=== PATIENT | female | born 1930 | race Caucasian/White ===

== ENCOUNTER 2016-02-29 17:09 | Inpatient (IN) | payer MEDICARE, OTHER ==
[2016-02-29 17:54] LABS: ABSOLUTE EOSINOPHILS # (AUTO) 0.2 10^3/uL (0.0-0.6); ABSOLUTE LYMPHOCYTES (AUTO) 0.5 10^3/uL (0.5-4.7); ABSOLUTE MONOCYTES (AUTO) 1.2 10^3/uL (0.1-1.4); ABSOLUTE NEUT (AUTO) 7.6 10^3/uL (1.7-8.2); BASOPHILS % (AUTO) 0.4 % (0-2); EOSINOPHILS % (AUTO) 2.3 % (0-6); HEMATOCRIT 42.2 % (36.0-47.0); HEMOGLOBIN 13.3 g/dL (12.0-15.5); HGB HCT DIFFERENCE -2.3; LYMPHOCYTES % (AUTO) 5.6 % (13-45); MEAN CORPUSCULAR HGB CONC 31.5 g/dL (32.0-36.0); MEAN CORPUSCULAR VOLUME 89 fl (80-97); MONOCYTES % (AUTO) 12.8 % (3-13); RED BLOOD COUNT 4.76 10^6/uL (3.72-5.28); RED CELL DISTRIBUTION WIDTH 14.1 % (11.5-14.0); SEGMENTED NEUTROPHILS % (AUTO) 78.9 % (42-78); WHITE BLOOD COUNT 9.7 10^3/uL (4.0-10.5)
[2016-02-29 18:11] LABS: ALANINE AMINOTRANSFERASE 18 U/L (9-52); ALBUMIN 3.7 g/dL (3.5-5.0); ALKALINE PHOSPHATASE 124 U/L (38-126); ANION GAP 13 (5-19); ASPARTATE AMINO TRANSFERASE 21 U/L (14-36); BILIRUBIN,TOTAL 0.6 mg/dL (0.2-1.3); BLOOD UREA NITROGEN 24 mg/dL (7-20); CALCIUM 8.8 mg/dL (8.4-10.2); CARBON DIOXIDE 35 mmol/L (22-30); CHLORIDE 97 mmol/L (98-107); CREATININE RESULT 0.71 mg/dL (0.52-1.25); GLUCOSE 120 mg/dL (75-110); POTASSIUM 3.9 mmol/L (3.6-5.0); SODIUM 144.6 mmol/L (137-145); TOTAL PROTEIN 7.4 g/dL (6.3-8.2)
--- NOTE | 2016-02-29 19:05 | ER Document Report ---
ED GI/ - General Chief Complaint: Nausea/Vomiting Stated Complaint: VOMITING Time seen by provider: 19:04 Mode of Arrival: Stretcher Information source: Transfer Record TRAVEL OUTSIDE OF THE [place] IN LAST 30 DAYS: No - HPI Patient complains to provider of: Vomiting Onset: This morning Timing/Duration: Sudden Quality of pain: No pain Associated symptoms: Nausea, Vomiting Exacerbated by: Food Relieved by: Denies Notes: 02/29/16 19:05 Patient is an 86-year-old female [facility] for complaints of nausea and vomiting that started this morning, patient has a history of Alzheimer's dementia, and is unable to provide any specific details regarding her condition - Related Data Allergies/Adverse Reactions: Penicillins Allergy (Verified 02/29/16 17:28) Sulfa (Sulfonamide Antibiotics) Allergy (Verified 02/29/16 17:28) Past Medical History - General Information source: Outside Facility Records Cannot obtain history due to: Dementia - Social History Smoking Status: Unknown if Ever Smoked Family History: Reviewed & Not Pertinent Patient has suicidal ideation: No Patient has homicidal ideation: No - Past Medical History Cardiac Medical History: Reports: Hx Hypertension Renal/ Medical History: Denies: Hx Peritoneal Dialysis Surgical Hx: Negative Review of Systems - Review of Systems -: Yes ROS unobtainable due to patient's medical condition Gastrointestinal: Nausea, Vomiting Physical Exam - Vital signs Vitals: Temp Pulse Resp BP Pulse Ox 99.4 F 105 H 20 157/90 H 88 L 02/29/16 17:15 02/29/16 17:15 02/29/16 17:15 02/29/16 17:15 02/29/16 17:15 Interpretation: Tachycardic - General General appearance: Appears well, Alert In distress: None - HEENT Head: Normocephalic, Atraumatic Eyes: Normal Conjunctiva: Normal Extraocular movements intact: Yes Eyelashes: Normal Pupils: PERRL Mucous membranes: Dry - Respiratory Respiratory status: No respiratory distress Chest status: Nontender Breath sounds: Normal Chest palpation: Normal - Cardiovascular Rhythm: Regular, Tachycardia - Abdominal Inspection: Normal Distension: No distension Bowel sounds: Normal Tenderness: Nontender Organomegaly: No organomegaly - Back Back: Normal, Nontender - Extremities General upper extremity: Normal inspection, Nontender, Normal color, Normal ROM , Normal temperature General lower extremity: Normal inspection, Nontender, Normal color, Normal ROM , Normal temperature, Normal weight bearing. No: Avinash's sign - Neurological Cognition: Confused [place] Coma Scale Eye Opening: Spontaneous [place] Coma Scale Verbal: Confused [place] Coma Scale Motor: Obeys Commands Tony Coma Scale Total: 14 - Psychological Associated symptoms: Normal affect, Normal mood - Skin Skin Temperature: Warm Skin Moisture: Dry Skin Color: Normal Course - Re-evaluation Re-evalutation: 03/01/16 01:57 Patient has been persistently tachycardic, she also becomes quite hypoxic once oxygen is removed, at times patient's speech appears to be coherent, at other times it is not, she is unable to answer any questions appropriately, nursing staff called the penitentiary to get some background information on patient, they state that her speech is normally coherent and she is not oxygen dependent , therefore a CT head has been ordered to rule out CVA, and a CTA of the chest to rule out pulmonary emboli 03/01/16 04:35 CT scan shows large mass in the lungs and mediastinum, patient's penitentiary history does not report any history of previous cancer, she continues to become hypoxic when oxygen is removed, penitentiary reports no oxygen usage regularly, patient has no family members present and it is difficult to obtain information from her, therefore patient was discussed with the hospitalist who agrees to admit for further evaluation and treatment, patient is a DO NOT RESUSCITATE portable DNA with her - Vital Signs Vital signs: Temp Pulse Resp BP Pulse Ox 99.4 F 105 H 19 166/69 H 95 02/29/16 17:15 02/29/16 17:15 03/01/16 04:00 03/01/16 03:38 03/01/16 04:00 - Laboratory Result Diagrams: 02/29/16 17:35 02/29/16 17:35 Laboratory results interpreted by me: 02/29/16 02/29/16 02/29/16 17:35 17:35 20:22 MCHC 31.5 L RDW 14.1 H Seg Neutrophils % 78.9 H Lymphocytes % 5.6 L Chloride 97 L Carbon Dioxide 35 H BUN 24 H Glucose 120 H Urine Blood SMALL H Urine Nitrite POSITIVE H Urine Ascorbic Acid 40 H - Diagnostic Test Radiology reviewed: Image reviewed, Reports reviewed - EKG Interpretation by Me EKG shows normal: Sinus rhythm Rate: Tachycardia - Transfer of Care Care transferred to following provider: Dr. Matute Critical Care Note - Critical Care Note Total time excluding time spent on procedures (mins): 60 Comments: Patient persistently tachycardic and hypoxic when oxygen removed, CT scan shows large lung and mediastinal mass, requiring admission for further evaluation and treatment Discharge - Discharge Clinical Impression: Lung mass, Hypoxia Nausea and vomiting Qualifiers: Vomiting type: unspecified Vomiting Intractability: non-intractable Qualified Code(s): R11.2 - Nausea with vomiting, unspecified Condition: Serious Disposition: ADMITTED INPATIENT Admitting Provider: Hospitalist Unit Admitted: Telemetry
[2016-02-29] MEDS: NORMAL SALINE 1000 ML 1,000 ML IV PRN (20:10)
[2016-02-29 20:57] LABS: APPEARANCE,URINE CLEAR; BILIRUBIN,URINE NEGATIVE (NEGATIVE); GLUCOSE, URINE NEGATIVE (NEGATIVE); KETONES,URINE NEGATIVE (NEGATIVE); LEUKOCYTE ESTERASE,URINE NEGATIVE (NEGATIVE); NITRITE,URINE POSITIVE (NEGATIVE); PROTEIN,URINE NEGATIVE (NEGATIVE); URINE SPECIFIC GRAVITY 1.014; UROBILINOGEN,URINE NEGATIVE mg/dL (<2.0)
[2016-02-29] MEDS ORDERED: NORMAL SALINE 1000 ML 1,000 ML IV PRN (21:26)
[2016-02-29] MEDS ORDERED: DEXTROSE IV ONE (22:40)
[2016-02-29] MEDS ORDERED: CIPROFLOXACIN IV ONE (22:40)
[2016-02-29] MEDS ORDERED: IPRATROPIUM/ALBUTEROL 0.5-2.5 MG/3 ML AMPUL NEB ONE (23:08)
[2016-02-29] MEDS ORDERED: FUROSEMIDE INJ/PF 40 MG/4 ML SDV IV ONE (23:09)
[2016-03-01] MEDS: NORMAL SALINE 1000 ML 1,000 ML IV PRN (00:34)
[2016-03-01] MEDS ORDERED: LEVALBUTEROL HCL NEB 1.25 MG/3 ML AMPUL NEB ONE (01:24)
[2016-03-01] MEDS ORDERED: ACETAMINOPHEN 325 MG TABLET PO ONE (02:41)
[2016-03-01] MEDS ORDERED: ONDANSETRON HCL INJ/PF 4 MG/2 ML SDV IV PRN (04:27)
[2016-03-01] MEDS ORDERED: ACETAMINOPHEN 325 MG TABLET PO PRN (04:27)
[2016-03-01] MEDS ORDERED: IPRATROPIUM/ALBUTEROL 0.5-2.5 MG/3 ML AMPUL NEB PRN (04:27)
[2016-03-01] MEDS ORDERED: NORMAL SALINE 1000 ML 1,000 ML IV SCH (04:30)
[2016-03-01] MEDS ORDERED: HYDROCODONE/ACETAMINOPHEN 5-325 MG TABLET PO PRN (04:30)
--- NOTE | 2016-03-01 05:19 | PDOC H&P ---
History of Present Illness Admission Date/PCP: 03/01/16 04:29 Patient complains of: Nausea vomiting History of Present Illness: OLGA DILLON is a 86 year old female who is a long-term [facility] resident and has a history of hypertension and dementia he was noted by [facility] staff to have nausea with vomiting and brought to the emergency room for evaluation without subsequent symptoms however has had tachycardia and hypoxia and referred to the emergency room for evaluation. Unfortunately the patient is a for a poor historian oriented 1 and subsequent history is obtained by the medical record. In her workup by emergency room physician she is noted to have a chest x-ray notable for a wide mediastinum and a CT showing a 4.5 cm aortic aneurysm and presumed new finding of large lung mass with metastasis. Past Medical History Cardiac Medical History: Reports: Hypertension Social History Information Source: [facility] Records Lives with: [facility] Smoking Status: Unknown if Ever Smoked Hx Recreational Drug Use: No Drugs: None Hx Prescription Drug Abuse: No - Advance Directive Resuscitation Status: Do Not Resuscitate Family History Family History: None Parental Family History Reviewed: Yes Children Family History Reviewed: Yes Sibling(s) Family History Reviewed.: Yes Medication/Allergy Home Medications: Acetaminophen [Arthritis Pain Relief] 650 mg 03/01/16 Amlodipine Besylate DAILY 03/01/16 Brimonidine Tartrate [Brimonidine Tartrate] 03/01/16 Clonidine HCl [Clonidine HCl] QHS 03/01/16 Cod Liver Oil/Zinc Oxide [Desitin Diaper Rash 40% Paste] PRN 03/01/16 Docusate Sodium PRN 03/01/16 Ezetimibe [Zetia 10 mg Tablet] DAILY 03/01/16 Furosemide [Lasix 20 mg Tablet] DAILY 03/01/16 Furosemide [Lasix 40 mg Tablet] DAILY 03/01/16 Guaifenesin/D-Methorphan Hb [Robitussin-Dm Syrup 10 ml Udcup] PRN 03/01/16 Polyethylene Glycol 3350 [Gavilax] PRN 03/01/16 Potassium Chloride [Klor-Con 10] BID 03/01/16 Timolol Maleate [Timoptic 0.5% Oph Soln 5 ml] BID 03/01/16 Allergies/Adverse Reactions: Penicillins Allergy (Verified 02/29/16 17:28) Sulfa (Sulfonamide Antibiotics) Allergy (Verified 02/29/16 17:28) Review of Systems ROS unobtainable: Due to mental status Physical Exam Vital Signs: Temp Pulse Resp BP Pulse Ox 99.4 F 105 H 19 166/69 H 95 02/29/16 17:15 02/29/16 17:15 03/01/16 04:00 03/01/16 03:38 03/01/16 04:00 General appearance: PRESENT: no acute distress, obese Head exam: PRESENT: atraumatic, normocephalic Eye exam: PRESENT: conjunctiva pink, EOMI, PERRLA. ABSENT: scleral icterus Ear exam: PRESENT: normal external ear exam Mouth exam: PRESENT: moist, tongue midline Neck exam: ABSENT: carotid bruit, JVD, lymphadenopathy, thyromegaly Respiratory exam: PRESENT: crackles, prolonged expiratory phas, symmetrical, unlabored. ABSENT: rales, retraction, rhonchi Cardiovascular exam: PRESENT: +S1, +S2, systolic murmur Pulses: PRESENT: normal dorsalis pedis pul Vascular exam: PRESENT: normal capillary refill GI/Abdominal exam: PRESENT: normal bowel sounds, soft. ABSENT: distended, guarding, mass, organolmegaly, rebound, tenderness Rectal exam: PRESENT: deferred Extremities exam: PRESENT: +1 edema Neurological exam: PRESENT: oriented to person, reflexes normal, CN II-XII grossly intact. ABSENT: oriented to place, oriented to time, oriented to situation Psychiatric exam: PRESENT: appropriate affect, normal mood. ABSENT: homicidal ideation, suicidal ideation Skin exam: PRESENT: dry, intact, warm. ABSENT: cyanosis, rash Results Impressions: Chest X-Ray 02/29/16 21:18 IMPRESSION: NO SIGNIFICANT RADIOGRAPHIC FINDING IN THE CHEST. Head CT 03/01/16 01:48 IMPRESSION: No acute intracranial hemorrhage or depressed calvarial fracture. Chronic changes of atrophy and microvascular ischemia. Chest/Abdomen CTA 03/01/16 01:58 IMPRESSION: No pulmonary emboli. 4.5 cm fusiform aneurysmal dilation of the ascending thoracic aorta. Heterogeneous mass at the medial right lung apex extending into the right mediastinum and perihilar region, worrisome for malignancy. Correlation with PET/ CT and tissue sampling recommended. Right hilar, mediastinal and right supraclavicular adenopathy, probably metastatic. Pleural thickening along the right upper lung with adjacent rib destruction, also probably metastatic lesions. Heterogeneous nodule at the right adrenal gland, metastasis cannot be excluded. These can also be better evaluated on PET/CT. Small hiatal hernia. Enlarged and heterogeneous visualized thyroid gland. Thyroid ultrasound can be obtained as clinically warranted. Anterior wedging with compression deformity at T9 vertebral body, of indeterminate age. Sclerotic area at T11 vertebral body, may represent a compression fracture or osseous metastasis. Please correlate with point tenderness. Bone scan or MRI can help in further evaluation as clinically warranted. Assessment & Plan - Diagnosis (1) Hypoxia Is this a current diagnosis for this admission?: YesPlan: Unclear cause concern for possible atelectasis versus pneumonitis after vomiting currently requiring 2 L of nasal cannula oxygen for saturations greater than 95 otherwise dropping into the mid 80s. Will attempt to encourage incentive spirometry though doubt mental status is adequate, empiric albuterol Atrovent scheduled every 6. Patient does have some degree of metabolic alkalosis which may have impacted her oxygen binding, will correct with an IV fluid challenge and reevaluate (2) Lung mass Is this a current diagnosis for this admission?: YesPlan: I am doubtful the patient is a surgical candidate given her comorbidity. Patient's POA and/or family will be contacted for guidance. Discharge planning consultation is obtained for consideration of hospice (3) Nausea and vomiting Qualifiers: Vomiting type: unspecified Vomiting Intractability: non-intractable Qualified Code(s): R11.2 - Nausea with vomiting, unspecified Is this a current diagnosis for this admission?: YesPlan: Will evaluate cardiac enzymes otherwise bowel sounds are verified and will treat symptomatically - Time Time Spent: 30 to 50 Minutes
[2016-03-01] MEDS: CLONIDINE HCL 0.1 MG TABLET PO SCH ×3 (06:13→21:51)
[2016-03-01] MEDS: HEPARIN SOD (PORCINE) 5,000 UNIT/ML 1 ML SYRINGE SUBCUT SCH ×3 (06:15→21:52)
[2016-03-01 08:13] LABS: CREATINE KINASE MB 1.08 ng/mL (<4.55)
[2016-03-01 08:19] LABS: TROPONIN I < 0.012 ng/mL
[2016-03-01] MEDS: DOCUSATE SODIUM 100 MG CAPSULE PO SCH ×2 (10:37→17:31)
[2016-03-01] MEDS: POLYETHYLENE GLYCOL 3350 POWDER 17 GM/1 PACKET PO SCH (10:37)
[2016-03-01] MEDS ORDERED: INFLUENZA ADLT QUAD (36MOS+) 2016-17 VAC 0.5 ML SYR IM PRN (12:05)
[2016-03-01 14:46] LABS: CREATINE KINASE MB 0.84 ng/mL (<4.55); TROPONIN I < 0.012 ng/mL
--- NOTE | 2016-03-01 16:52 | PDOC PROGRESS REPORT ---
Subjective Progress Note for:: 03/01/16 Subjective:: The patient is an 86-year-old female seen on morning rounds. She is resting comfortably in bed. She does awaken to verbal stimuli. She answers yes and no to questions, but has a demented affect. Review systems is unobtainable due to patient's mentation. Patient had no nausea or vomiting according to the nursing staff. Physical Exam Vital Signs: Temp Pulse Resp BP Pulse Ox 98.3 F 79 17 112/49 L 94 03/01/16 08:24 03/01/16 13:58 03/01/16 13:58 03/01/16 08:24 03/01/16 08:24 General appearance: PRESENT: no acute distress, well-developed, well-nourished Head exam: PRESENT: atraumatic, normocephalic Eye exam: PRESENT: conjunctiva pink, EOMI, PERRLA. ABSENT: scleral icterus Ear exam: PRESENT: normal external ear exam Mouth exam: PRESENT: moist, tongue midline Neck exam: ABSENT: carotid bruit, JVD, lymphadenopathy, thyromegaly Respiratory exam: PRESENT: clear to auscultation luis armando. ABSENT: rales, rhonchi, wheezes Cardiovascular exam: PRESENT: RRR. ABSENT: diastolic murmur, rubs, systolic murmur Pulses: PRESENT: normal dorsalis pedis pul Vascular exam: PRESENT: normal capillary refill GI/Abdominal exam: PRESENT: normal bowel sounds, soft. ABSENT: distended, guarding, mass, organolmegaly, rebound, tenderness Rectal exam: PRESENT: deferred Neurological exam: PRESENT: alert, altered, awake, CN II-XII grossly intact. ABSENT: motor sensory deficit Psychiatric exam: PRESENT: appropriate affect, normal mood. ABSENT: homicidal ideation, suicidal ideation Skin exam: PRESENT: dry, intact, warm. ABSENT: cyanosis, rash Results Laboratory Results: 03/01/16 03/01/16 07:29 14:09 CK-MB (CK-2) 1.08 0.84 Troponin I < 0.012 < 0.012 Impressions: Chest X-Ray 02/29/16 21:18 IMPRESSION: NO SIGNIFICANT RADIOGRAPHIC FINDING IN THE CHEST. Head CT 03/01/16 01:48 IMPRESSION: No acute intracranial hemorrhage or depressed calvarial fracture. Chronic changes of atrophy and microvascular ischemia. Chest/Abdomen CTA 03/01/16 01:58 IMPRESSION: No pulmonary emboli. 4.5 cm fusiform aneurysmal dilation of the ascending thoracic aorta. Heterogeneous mass at the medial right lung apex extending into the right mediastinum and perihilar region, worrisome for malignancy. Correlation with PET/ CT and tissue sampling recommended. Right hilar, mediastinal and right supraclavicular adenopathy, probably metastatic. Pleural thickening along the right upper lung with adjacent rib destruction, also probably metastatic lesions. Heterogeneous nodule at the right adrenal gland, metastasis cannot be excluded. These can also be better evaluated on PET/CT. Small hiatal hernia. Enlarged and heterogeneous visualized thyroid gland. Thyroid ultrasound can be obtained as clinically warranted. Anterior wedging with compression deformity at T9 vertebral body, of indeterminate age. Sclerotic area at T11 vertebral body, may represent a compression fracture or osseous metastasis. Please correlate with point tenderness. Bone scan or MRI can help in further evaluation as clinically warranted. Assessment & Plan - Diagnosis (1) Nausea and vomiting Qualifiers: Vomiting type: unspecified Vomiting Intractability: non-intractable Qualified Code(s): R11.2 - Nausea with vomiting, unspecified Is this a current diagnosis for this admission?: YesPlan: Patient presently has no symptoms of nausea and vomiting. (2) Hypoxia Is this a current diagnosis for this admission?: YesPlan: Patient was hypoxic on room air in the emergency room. She was placed on oxygen at 2 L/m via nasal cannula she is now saturating well CTA of the chest was obtained which revealed right large lung mass with mediastinal adenopathy. (3) Lung mass Is this a current diagnosis for this admission?: YesPlan: Patient's son Ortiz is her medical power of privacy attorney. We discussed the findings of CTA of the large right lung mass with venous sternal adenopathy and hilar adenopathy. We discussed pros and cons of biopsy. Son does not feel he would want his mother to undergo chemotherapy if this and found to be lung cancer he therefore consented there is no point of us pursuing any biopsy at this time. We will, consult [facility] palliative care service to follow patient and she returns to long-term care (4) Essential hypertension Is this a current diagnosis for this admission?: YesPlan: Continue patient's current medications she is normotensive - Time Time Spent with patient: 25-34 minutes Critical Time spent with patient: 15-24 minutes Medications reviewed and adjusted accordingly: Yes Anticipated discharge: SNF Within: within 24 hours
[2016-03-01 20:34] LABS: CREATINE KINASE MB 0.98 ng/mL (<4.55)
[2016-03-01 20:37] LABS: TROPONIN I < 0.012 ng/mL
[2016-03-02 05:06] LABS: HEMATOCRIT 37.4 % (36.0-47.0); HEMOGLOBIN 11.9 g/dL (12.0-15.5); HGB HCT DIFFERENCE -1.7; MEAN CORPUSCULAR HEMOGLOBIN 28.2 pg (27.0-33.4); MEAN CORPUSCULAR HGB CONC 31.7 g/dL (32.0-36.0); MEAN CORPUSCULAR VOLUME 89 fl (80-97); RED BLOOD COUNT 4.21 10^6/uL (3.72-5.28); RED CELL DISTRIBUTION WIDTH 13.8 % (11.5-14.0); WHITE BLOOD COUNT 6.5 10^3/uL (4.0-10.5)
[2016-03-02] MEDS: CLONIDINE HCL 0.1 MG TABLET PO SCH ×2 (05:18→13:35)
[2016-03-02] MEDS: HEPARIN SOD (PORCINE) 5,000 UNIT/ML 1 ML SYRINGE SUBCUT SCH ×2 (05:18→13:36)
[2016-03-02 05:23] LABS: ANION GAP 10 (5-19); BLOOD UREA NITROGEN 18 mg/dL (7-20); CALCIUM 8.4 mg/dL (8.4-10.2); CARBON DIOXIDE 36 mmol/L (22-30); CHLORIDE 98 mmol/L (98-107); CREATININE RESULT 0.72 mg/dL (0.52-1.25); GLUCOSE 83 mg/dL (75-110); POTASSIUM 3.2 mmol/L (3.6-5.0)
[2016-03-02 06:02] LABS: BAND NEUTROPHILS % (MANUAL) 2 % (3-5); BASOPHILS % (MANUAL) 2 % (0-2); EOSINOPHILS % (MANUAL) 2 % (0-6); LYMPHOCYTES % (MANUAL) 17 % (13-45); TOTAL CELLS COUNTED 100
[2016-03-02 06:03] LABS: TOXIC GRANULATION SLIGHT
[2016-03-02 06:04] LABS: RBC MORPHOLOGY COMMENT NORMO-CYTIC/CHROMIC
[2016-03-02] MEDS: POLYETHYLENE GLYCOL 3350 POWDER 17 GM/1 PACKET PO SCH (09:42)
[2016-03-02] MEDS: DOCUSATE SODIUM 100 MG CAPSULE PO SCH (09:42)
--- NOTE | 2016-03-02 10:48 | PDOC TRANSFER SUMMARY ---
General - Admit/Disc Date/PCP Admission Date/Primary Care Provider: 03/01/16 04:27 Discharge Date: 03/02/16 - Discharge Diagnosis (1) Nausea and vomiting Is this a current diagnosis for this admission?: YesSummary: Patient has had no further nausea or vomiting since admission (2) Hypoxia Is this a current diagnosis for this admission?: YesSummary: Patient found to have large right lung mass with adenopathy. Patient will be followed by [facility]iative [facility] (3) Lung mass Is this a current diagnosis for this admission?: YesSummary: Patient has dementia and is not able to participate in discussion regarding her goals of care. Findings were discussed with her son who is patient's MPOA. He does not want any aggressive measures taken. We discussed option of Palliative Care following her for symptom management if they develop. He is agreeable to that (4) Essential hypertension Is this a current diagnosis for this admission?: Yes - Additional Information Resuscitation Status: Do Not Resuscitate Discharge Diet: Regular Discharge Activity: Activity As Tolerated Home Medications: Acetaminophen [Tylenol 325 mg Tablet] 650 mg PO BID 03/01/16 Amlodipine Besylate [Norvasc 10 mg Tablet] 10 mg PO DAILY 03/01/16 Brimonidine Tartrate [Alphagan 0.2% Oph Soln 5 ml] 1 drop OU DAILY 03/01/16 Clonidine HCl [Catapres 0.1 mg Tablet] 0.1 mg PO QHS 03/01/16 Docusate Sodium [Colace 100 mg Capsule] 100 mg PO BIDP PRN 03/01/16 Ezetimibe [Zetia 10 mg Tablet] 10 mg PO QHS 03/01/16 Furosemide [Lasix 20 mg Tablet] 20 mg PO DAILY@2100 03/01/16 Furosemide [Lasix 40 mg Tablet] 40 mg PO DAILY 03/01/16 Guaifenesin/D-Methorphan Hb [Robitussin-Dm Syrup 10 ml Udcup] 10 ml PO Q4HP PRN 03/01/16 Polyethylene Glycol 3350 [Miralax Powder 17 gm/Packet] 17 gm PO DAILYP PRN 03/01 Potassium Chloride [Klor-Con 10 Meq Tablet.sa] 10 meq PO BID 03/01/16 Timolol Maleate [Timoptic 0.5% Oph Soln 5 ml] 1 drop OU BID 03/01/16 Zinc Oxide [Zinc Oxide 20% Ointment 28.35 gm] 1 applic TOP DAILYP PRN 03/01/16 Acetaminophen [Tylenol 325 mg Tablet] 650 mg PO Q4HP PRN tablet 03/02/16 Lidocaine [Lidoderm 5% (700 mg) Transdermal Patch] 2 patch TP DAILY #60 adh..patch 03/02/16 History of Present Illness Admission Date/PCP: 03/01/16 04:27 History of Present Illness: OLGA DILLON is a 86 year old female who is a long-term snf resident and has a history of hypertension and dementia he was noted by [facility] staff to have nausea with vomiting and brought to the emergency room for evaluation without subsequent symptoms however has had tachycardia and hypoxia and referred to the emergency room for evaluation. Unfortunately the patient is a for a poor historian oriented 1 and subsequent history is obtained by the medical record. In her workup by emergency room physician she is noted to have a chest x-ray notable for a wide mediastinum and a CT showing a 4.5 cm aortic aneurysm and presumed new finding of large lung mass with metastasis. Hospital Course Hospital Course: Patient was admitted to the telemetry unit. She had no further episodes of vomiting. She was given IV hydration for mild dehydration. Her Lasix was held. Findings regarding CT scan results were talked over with her son. He was given options of biopsy and treatment for what most likely is a stage IV lung cancer or options of no workup and Palliative Care referral. He feels it is in his mother's best interest to proceed with Palliative Care only. [facility] Palliative care consult was placed. Physical Exam Vital Signs: Temp Pulse Resp BP Pulse Ox 99.1 F 76 14 121/55 L 92 03/02/16 08:00 03/02/16 08:00 03/02/16 08:00 03/02/16 08:00 03/02/16 08:00 Intake & Output 03/01/16 03/02/16 03/03/16 06:59 06:59 06:59 Intake Total 520 Balance 520 Weight 101.2 kg General appearance: PRESENT: no acute distress, obese, well-developed, well- nourished Head exam: PRESENT: atraumatic, normocephalic Eye exam: PRESENT: conjunctiva pink, EOMI, PERRLA. ABSENT: scleral icterus Ear exam: PRESENT: normal external ear exam Mouth exam: PRESENT: moist, tongue midline Neck exam: ABSENT: carotid bruit, JVD, lymphadenopathy, thyromegaly Respiratory exam: PRESENT: chest wall tenderness - right, rhonchi, symmetrical, unlabored Cardiovascular exam: PRESENT: bradycardia Pulses: PRESENT: normal dorsalis pedis pul Vascular exam: PRESENT: normal capillary refill GI/Abdominal exam: PRESENT: normal bowel sounds, soft. ABSENT: distended, guarding, mass, organolmegaly, rebound, tenderness Rectal exam: PRESENT: deferred Extremities exam: PRESENT: full ROM. ABSENT: calf tenderness, clubbing, pedal edema Neurological exam: PRESENT: alert, altered, awake, CN II-XII grossly intact. ABSENT: motor sensory deficit Psychiatric exam: PRESENT: appropriate affect, normal mood. ABSENT: homicidal ideation, suicidal ideation Skin exam: PRESENT: dry, intact, warm. ABSENT: cyanosis, rash Results Laboratory Results: 03/02/16 04:28 03/02/16 04:28 03/02/16 03/02/16 04:28 04:28 WBC 6.5 RBC 4.21 Hgb 11.9 L Hct 37.4 MCV 89 MCH 28.2 MCHC 31.7 L RDW 13.8 Plt Count 187 Seg Neutrophils % Not Reportable Lymphocytes % Not Reportable Monocytes % Not Reportable Eosinophils % Not Reportable Basophils % Not Reportable Absolute Neutrophils Not Reportable Absolute Lymphocytes Not Reportable Absolute Monocytes Not Reportable Absolute Eosinophils Not Reportable Absolute Basophils Not Reportable Sodium 144.0 Potassium 3.2 L Chloride 98 Carbon Dioxide 36 H Anion Gap 10 BUN 18 Creatinine 0.72 Est GFR ( Amer) > 60 Est GFR (Non-Af Amer) > 60 Glucose 83 Calcium 8.4 03/01/16 03/01/16 03/01/16 07:29 14:09 19:50 CK-MB (CK-2) 1.08 0.84 0.98 Troponin I < 0.012 < 0.012 < 0.012 Impressions: Chest X-Ray 02/29/16 21:18 IMPRESSION: NO SIGNIFICANT RADIOGRAPHIC FINDING IN THE CHEST. Head CT 03/01/16 01:48 IMPRESSION: No acute intracranial hemorrhage or depressed calvarial fracture. Chronic changes of atrophy and microvascular ischemia. Chest/Abdomen CTA 03/01/16 01:58 IMPRESSION: No pulmonary emboli. 4.5 cm fusiform aneurysmal dilation of the ascending thoracic aorta. Heterogeneous mass at the medial right lung apex extending into the right mediastinum and perihilar region, worrisome for malignancy. Correlation with PET/ CT and tissue sampling recommended. Right hilar, mediastinal and right supraclavicular adenopathy, probably metastatic. Pleural thickening along the right upper lung with adjacent rib destruction, also probably metastatic lesions. Heterogeneous nodule at the right adrenal gland, metastasis cannot be excluded. These can also be better evaluated on PET/CT. Small hiatal hernia. Enlarged and heterogeneous visualized thyroid gland. Thyroid ultrasound can be obtained as clinically warranted. Anterior wedging with compression deformity at T9 vertebral body, of indeterminate age. Sclerotic area at T11 vertebral body, may represent a compression fracture or osseous metastasis. Please correlate with point tenderness. Bone scan or MRI can help in further evaluation as clinically warranted. Transfer Plan - Disposition Transfer Plan: [facility] with Palliative Care [facility] following - Time Spent with Patient Time spent with patient: Less than 30 Minutes Qualifiers PATEINT BEING DISCHARGED WITH ANY OF THE FOLLOWING DIAGNOSIS?: No Plan Time Spent: Less than 30 Minutes
[2016-03-02] MEDS ORDERED: LIDOCAINE 5% (700 MG) TRANSDERMAL ADH..PATCH TP ONE (11:00)
[2016-03-02] MEDS ORDERED: POTASSIUM CHLORIDE 10 MEQ TABLET.SA PO ONE (11:15)
[2016-03-02 14:00] VITALS: BP 118/69
[2016-03-02] MEDS ORDERED: PHARMACY COMMUNICATION ORDER MC SCH (22:00)
[2016-03-03] MEDS ORDERED: LIDOCAINE 5% (700 MG) TRANSDERMAL ADH..PATCH TP SCH (10:00)
== END 2016-03-02 15:15 | DRG 182 ==
LOC: ER 17:09 → EH 03-01 04:27 → UNDOADMIN 03-01 04:29 → EH 03-01 04:29 → 5 03-01 07:49
PROVIDERS: ADMIT Internal Medicine; ATTEND Internal Medicine
PROC: 3E0F73Z Introduction of Anti-inflammatory into Respiratory Tract, Via Natural or Artificial Opening (ICD-10-PCS; principal; 2016-03-01)
DX: C34.91 Malignant neoplasm of unspecified part of right bronchus or lung (principal); I10 Essential (primary) hypertension; R09.02 Hypoxemia; R11.2 Nausea with vomiting, unspecified; Z66 Do not resuscitate; R00.0 Tachycardia, unspecified; I71.4 Abdominal aortic aneurysm, without rupture; G30.9 Alzheimer's disease, unspecified; F02.80 Dementia in other diseases classified elsewhere, unspecified severity, without behavioral disturbance, psychotic disturbance, mood disturbance, and anxiety; Z88.0 Allergy status to penicillin; Z88.2 Allergy status to sulfonamides
CPT/HCPCS: 36415; 51701; 70450; 71020; 71275; 80048; 80053; 81001; 82553; 84484; 85025; 94640; 96361; 96365; 96375; 99291; J0744; J1644; J1940; J3490; J7030; J7620